=== PATIENT | female | born 1990 | race African-American/Black ===

== ENCOUNTER 2017-04-16 22:52 | Inpatient (IN) ==
[2017-04-16] MEDS ORDERED: MEPERIDINE 50 MG/1 ML VIAL IV ONE (23:25)
[2017-04-16] MEDS ORDERED: ONDANSETRON 4 MG/2 ML VIAL IV ONE (23:26)
[2017-04-16] MEDS: LACTATED RINGERS 1,000 ML IV SCH (23:45)
[2017-04-17] MEDS ORDERED: ONDANSETRON 4 MG/2 ML VIAL IV PRN ×2 (00:37→03:36)
[2017-04-17] MEDS ORDERED: MEPERIDINE 50 MG/1 ML VIAL IV PRN (00:37)
[2017-04-17] MEDS ORDERED: FAMOTIDINE 20 MG/2 ML VIAL IV ONE (00:38)
[2017-04-17] MEDS ORDERED: ePHEDrine 50 MG/ML AMP IV PRN (00:38)
[2017-04-17] MEDS ORDERED: CITRIC ACID/SODIUM CITRATE 30 ML UDCUP PO ONE (00:38)
[2017-04-17] MEDS ORDERED: fentaNYL 2 MCG/ROPIV 0.2% EPID 150 ML EPIDURAL SCH (00:39)
[2017-04-17] MEDS ORDERED: AMPICILLIN INJ 2,000 MG in SODIUM CHLORIDE 0.9% 100 ML IV SCH (01:00)
[2017-04-17 01:01] LABS: Basophils % 0.2 % (0.0-0.8); Eosinophils # 0.1 10*3/uL (0.0-0.87); Eosinophils % 0.6 % (0.00-10.9); Hematocrit 34.8 VOL% (35.7-47.0); Hemoglobin 11.6 GM/DL (12.0-16.0); Immature Granulocytes % 0.6 %; Immature Granulocytes Absolute 0.07 #; Lymphocytes # 1.8 10*3/uL (1.4-4.0); Lymphocytes % 15.4 % (21.3-54.2); Mean Corpuscular HGB Conc 33.3 GM/DL (32-36); Mean Corpuscular Hemoglobin 28 PG (27-34); Mean Corpuscular Volume 84.9 FL (87-102); Mean Platelet Volume 13.6 FL (9.6-12.0); Monocytes # 1.1 10*3/uL (0.11-0.8); Monocytes % 9.2 % (1.7-12.7); Neutrophils # 8.7 10*3/uL (1.4-7.4); Platelet Count 216 T/CUMM (130-400); Red Cell Distribution Width 14.2 % (9.3-17.3); White Blood Count 11.8 T/CUMM (4-12)
[2017-04-17 01:23] LABS: Albumin 2.5 G/DL (3.4-5.0); Bilirubin,Total 0.8 MG/DL (0.2-1.0); Calcium 9.1 MG/DL (8.5-10.1); Osmolality,Calculated 269.8 MOS/KG (273-304); Potassium 3.9 MMOL/L (3.5-5.1); Total Protein 7.5 G/DL (6.4-8.3)
[2017-04-17] MEDS: LACTATED RINGERS 1,000 ML IV SCH ×2 (01:25→01:26)
[2017-04-17] MEDS ORDERED: OXYTOCIN/LR 30 UNIT/1,000 ML BAG IV ONE (01:53)
--- NOTE | 2017-04-17 03:32 | OB/GYN History & Physical ---
History of Present Illness Chief complaint: Active labor History of present illness: Ms. Ward is a 27 year old female 27-year-old female admitted in active labor, cervical exam was approximately 3- 4 cm. She was observed for another hour she progressed to 4-5. She subsequently received an epidural anesthetic. Her heart tones were category 1 throughout her labor process. Patient is EDC is 04/30/2017 which makes her approximately 38 weeks gestation. Risks and benefits were thoroughly discussed with the patient, all parties are in agreement. Home Medications Medication Instructions Recorded Confirmed Type No Known Home Medications [No 04/27/16 04/17/17 History Known Home Medications] Allergies Allergy/AdvReac Type Severity Reaction Status Date / Time No Known Allergies Allergy Verified 12/09/16 10:53 Medical,Surgical,& Family Hx - Medical History Neurology: No history of: Neurologocal Cancer Musculoskeletal: No history of: Amputation - Surgical History Abdominal Surgeries: Surgical HX of: Abdominal Surgery, Cholecystectomy Reproductive Surgeries: Patient denies;: Gynecologic Surgery - Family History Family History: Denies;: Family Anesthesia Reaction, Family Cancer, Family Diabetes, Family Heart Disease, Family Hematology, Family Stroke, Additional Family History - Social History Smoking Status: Never smoker Frequency of Alcohol Use: None Type of Drug Use: None 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 - Constitutional Vitals: Vital Signs Temp Pulse Resp BP 04/17/17 00:37 97.1 F L 81 22 137/84 04/17/17 00:00 77 18 127/73 General appearance: mild distress - Antepartum / Post Antepartum Exam Cervix - Dilatation: 4 cm Effacement: 80% Station: -2 - Head Head exam: Present: normal inspection - Eye Eye exam: Present: EOMI Pupils: Present: DWAYNE - ENT ENT exam: Present: normal exam - Neck Neck exam: Present: normal inspection - Respiratory Respiratory exam: Present: clear to auscultation bilaterally - Breast Breasts: as per HPI Menstruation: as per HPI - Cardiovascular Cardiovascular exam: Present: regular rate and rhythm - GI/Abdominal GI/Abdominal exam: Present: normal bowel sounds - Extremities Exam Extremities exam: Present: normal inspection - Back Exam Back exam: Present: normal inspection - Neurological Exam Neurological exam: Present: alert, oriented X3 - Psychiatric Psychiatric exam: Present: normal affect - Skin Skin exam: Present: normal color Assessment and Plan (1) Active labor Status: Acute Assessment and plan: Anticipate , risks benefits thoroughly discussed she is in full agreement. Current Visit: Yes Results - Labs CBC & BMP: 04/17/17 Unknown 04/17/17 Unknown
--- NOTE | 2017-04-17 03:35 | Event Note ---
Labor note Stage I Patient admitted 2255 at 4 cm dilated. Artificial rupture membranes at 9 cm dilated which was clear fluid heart tones were category 1 with external monitor Epidural anesthetic IV fluids Stage II Vaginal At approximately 3:21 AM Female infant Apgars 8 at 1 minute 9 at 5 minutes Cord blood and cord gas obtained estimated weight pending Stage III Spontaneous deliver the placenta Cord blood obtained with 3 cord vessels Estimated blood loss less than 250 Mother stable Placenta was delivered at approximately 3:24 AM.
[2017-04-17] MEDS ORDERED: OXYTOCIN/LR 20 UNIT/1,000 ML BAG IV ONE (03:36)
[2017-04-17] MEDS ORDERED: MEASLES/MUMPS/RUBELLA VACCINE 0.5 ML VIAL SUBCUT ONE (03:36)
[2017-04-17] MEDS ORDERED: DIPH/TET/ACEL PERT BOOSTER VACCINE 0.5 ML VIAL IM ONE (03:36)
[2017-04-17] MEDS ORDERED: LANOLIN 50% CREAM 0.3 OZ TUBE TOP PRN (03:36)
[2017-04-17] MEDS ORDERED: BENZOCAINE 20%/MENTHOL 0.5% SPRAY 56 GM CAN TOP PRN (03:36)
[2017-04-17] MEDS ORDERED: ACETAMINOPHEN 325 MG TABLET PO PRN (03:36)
[2017-04-17] MEDS ORDERED: oxyCODONE/ACETAMINOPHEN 5-325 MG TABLET PO PRN (03:36)
[2017-04-17] MEDS ORDERED: WITCH HAZEL PADS 100/JAR TOP PRN (03:36)
[2017-04-17] MEDS ORDERED: HYDROCORTISONE 2.5% RECTAL CREAM 30 GM TUBE TOP PRN (03:36)
[2017-04-17] MEDS ORDERED: RHO(D) IMMUNE GLOBULIN 300 MCG SYRINGE IM ONE (03:36)
[2017-04-17] MEDS ORDERED: BISACODYL 10 MG SUPP RECTAL PRN (03:36)
[2017-04-17 06:08] LABS: Basophils % 0.1 % (0.0-0.8); Eosinophils % 0.1 % (0.00-10.9); Hematocrit 32.2 VOL% (35.7-47.0); Hemoglobin 10.7 GM/DL (12.0-16.0); Immature Granulocytes % 0.6 %; Immature Granulocytes Absolute 0.11 #; Lymphocytes # 1.1 10*3/uL (1.4-4.0); Lymphocytes % 6.2 % (21.3-54.2); Mean Corpuscular HGB Conc 33.2 GM/DL (32-36); Mean Corpuscular Hemoglobin 28 PG (27-34); Mean Corpuscular Volume 83.9 FL (87-102); Mean Platelet Volume 13.2 FL (9.6-12.0); Monocytes # 1.4 10*3/uL (0.11-0.8); Neutrophils # 15.1 10*3/uL (1.4-7.4); Platelet Count 204 T/CUMM (130-400); Red Blood Count 3.84 MC/CUMM (3.8-5.5); Red Cell Distribution Width 14.2 % (9.3-17.3); White Blood Count 17.8 T/CUMM (4-12)
--- NOTE | 2017-04-17 08:41 | Anesthesia Post-Op ---
Anesthesia Post OP - Post Ansesthetic Evaluation Patient seen in post op: Yes Resp: within normal limits CV: within normal limits Mental: within normal limits Temp: within normal limits [id number]: within normal limits Nausea and Vomiting: within normal limits Pain: within normal limits
[2017-04-17] MEDS: oxyCODONE/ACETAMINOPHEN 5-325 MG TABLET PO PRN (08:42)
[2017-04-17] MEDS: DOCUSATE SODIUM 100 MG CAPSULE PO SCH ×2 (08:43→20:55)
[2017-04-17] MEDS: IBUPROFEN 800 MG TABLET PO PRN ×2 (08:43→19:17)
--- NOTE | 2017-04-17 09:41 | OB/GYN Progress Note ---
Assessment and Plan (1) Vaginal delivery Status: Acute Assessment and plan: Initiate routine orders. 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 Bonding well with . Exam HOG TENDER - Constitutional Vitals: Vital Signs Temp Pulse Resp BP 04/17/17 04:00 97.8 F 73 18 132/76 04/17/17 00:37 97.1 F L 81 22 137/84 04/17/17 00:00 77 18 127/73 General appearance: no acute distress - Antepartum / Post Post Exam Breast: bilateral: normal Abdomen obstetrics: Present: bowel sounds normal Vagina: Present: normal moisture, discharge (Moderate lochia rubra) Uterus exam: Present: enlarged (Fundus firm and midline) Anus/Rectum: Present: normal perianal skin - Respiratory Respiratory exam: Present: clear to auscultation bilaterally - Cardiovascular Cardiovascular exam: Present: regular rate and rhythm - GI/Abdominal GI/Abdominal exam: Present: normal bowel sounds, soft - Extremities Exam Extremities exam: Present: normal inspection - Neurological Exam Neurological exam: Present: alert, oriented X3 - Psychiatric Psychiatric exam: Present: normal affect, normal mood - Skin Skin exam: Present: normal color, warm Results - Labs CBC & BMP: 04/17/17 Unknown 04/17/17 Unknown
[2017-04-18] MEDS: IBUPROFEN 800 MG TABLET PO PRN ×2 (07:29→19:45)
[2017-04-18] MEDS: DOCUSATE SODIUM 100 MG CAPSULE PO SCH ×3 (07:29→20:51)
[2017-04-18] MEDS: oxyCODONE/ACETAMINOPHEN 5-325 MG TABLET PO PRN (07:30)
[2017-04-18] MEDS: ONDANSETRON 4 MG TABLET PO PRN ×2 (08:31→19:45)
--- NOTE | 2017-04-18 11:12 | Progress Note ---
Assessment and Plan (1) Active labor Status: Acute Assessment and plan: Anticipate , risks benefits thoroughly discussed she is in full agreement. Current Visit: Yes Family Medicine PN Sub Interval history: Status post vaginal day #1 Physical exam is unremarkable, uterus is firm, neurologically grossly intact Assessment and plan Continue present therapy Possible discharge in a.m. Exam (Progress Note) - Constitutional Vitals: Period Temp Pulse Resp BP Sys/Kowalski Pulse Ox Last 24 Hr 96.6 F-97.9 F 60-74 18-20 96-128/55-80 96-100 Results - Labs CBC & BMP: 04/17/17 Unknown 04/17/17 Unknown Quality Measures - VTE Contraindication to Pharmacological VTE Prophylaxis: Clinical assessment deems Pt at low risk, no prophalaxis needed Specialty Discharge - Follow Up or Referrals Follow up with: Blu Michael MD [Primary Care Provider] - 05/22/17 1:45 pm
--- NOTE | 2017-04-19 07:54 | Discharge Summary ---
Hospital Course - Hospital Course Hospital Course: Routine course without complication. Pt feels well today and is ready to go home. Specialty Discharge - Follow Up or Referrals Follow up with: Blu Michael MD [Primary Care Provider] - 05/22/17 1:45 pm Discharge Plan - Discharge Data Disposition: Disch To Home/Self Care Condition at Discharge: Stable Discharge Diet: advance to your usual diet Activity: other (routine ) Hygiene: may shower Weight Bearing at Discharge: full weight bearing Driving: no restrictions Contact your physician if you experience:: fever over 101, Difficulty voiding, Redness or swelling - Discharge Medications New Docusate Sodium Cap [Colace Cap] 100 mg PO BID #20 capsule No Action No Known Home Medications [No Known Home Medications] - Follow Up or Referral Follow Up: Blu Michael MD [Primary Care Provider] - 05/22/17 1:45 pm - Forms/Instructions Instructions: Perineal Care (DC), Vaginal Delivery (DC), Bleeding (DC) Exam - Constitutional Vitals: Period Temp Pulse Resp BP Sys/Kowalski Pulse Ox Last 24 Hr 97.2 F-97.7 F 58-78 18-20 102-134/67-75 96-99 General appearance: normal weight - Head Head exam: Present: normal inspection - Eye Eye exam: Present: EOMI Pupils: Present: DWAYNE - GI/Abdominal GI/Abdominal exam: Present: soft. Absent: tenderness DS: Provider Date of admission: 04/17/17 00:37 Primary care physician: Blu Michael MD Attending physician on admission: Blu Michael MD Consults: 04/17/17 00:37 Consult to Anesthesiology [CONS] Routine Consulting Provider: Reason for Anesthesiology: Epidural Consult Comment: Epidural for pain managment 04/17/17 03:36 Consult to Paintless Dent Repair Technician [CONS] Routine Consult Paintless Dent Repair Technician: Breast Feeding Discharging clinician: Tere Doherty MD
[2017-04-19] MEDS: IBUPROFEN 800 MG TABLET PO PRN (07:58)
[2017-04-19] MEDS: DOCUSATE SODIUM 100 MG CAPSULE PO SCH (07:59)
[2017-04-19 08:11] VITALS: BP 153/91
[2017-04-19] MEDS ORDERED: INFLUENZA VIRUS VACCINE 0.5 ML SYRINGE IM ONE ×2 (09:00→09:30)
== END 2017-04-19 11:35 | disposition home or self-care (01) | DRG 560 ==
LOC: N.LDOUT 22:52 → N.LD 04-17 00:37 → N.OB 04-17 07:47
PROVIDERS: ADMIT Obstetrics & Gynecology; ATTEND Obstetrics & Gynecology